=== PATIENT | female | born 1940 | race Caucasian/White ===

== ENCOUNTER 2024-03-05 16:39 | Observation (INO) ==
[2024-03-05] MEDS: ASPIRIN CHEW 324 MG PO STA (17:23)
[2024-03-05 17:28] LABS: Base Excess VBG -3.3 mEq/L; HCO3 VBG 23 mmol/L; Oxygen Saturation VBG < 60.0 %; PCO2 VBG 46 mmHg (38-50); PO2 VBG 26 mmHg; pH VBG 7.31 (7.36-7.41)
--- NOTE | 2024-03-05 17:33 | Emergency Department Note ---
History of Present Illness General Chief Complaint: Referred by Doctor Stated Complaint: SOB, OX LEVEL DOWN Time Seen by Provider: 03/05/24 16:54 History of Present Illness Provider Complaint: shortness of breath Onset (ago): day(s) (2) Consistency/Duration: + progressively worsening Relieved By: + rest Exacerbated By: + exertion Context: no recent illness Associated symptoms: no chest pain, no fever, no cough, no wheezing, no sputum production, no orthopnea, no hemoptysis, no nausea/vomiting, no syncope, no abdominal pain or no chest congestion Related Data Home oxygen amount: none Home Medications Medication Instructions Recorded Confirmed Type dorzolamide-timolol (PF) 2 %-0.5 % 1 drp OPB BID 02/27/22 03/05/24 History eye drops in a dropperette estradiol acetate 0.05 mg/24 hr 0.05 mg vaginal Q90D 02/27/22 03/05/24 History vaginal ring (Femring) clopidogrel 75 mg tablet (Plavix) 75 mg PO DAILY #90 tabs 06/20/23 03/05/24 Rx latanoprost 0.005 % eye drops 1 drp OPB PM 08/01/23 03/05/24 History (Xalatan) sertraline 25 mg tablet (Zoloft) 25 mg PO DAILY #90 tabs 12/10/23 03/05/24 Rx ibuprofen 200 mg tablet (Advil) 200 mg PO Q6H PRN Back Pain 03/05/24 03/05/24 History levothyroxine 100 mcg tablet 100 mcg PO DAILYBB 03/05/24 03/05/24 History (Synthroid) metformin 500 mg tablet,extended 500 mg PO HS 03/05/24 03/05/24 History release 24 hr tizanidine 4 mg tablet 4 mg PO Q4H PRN MUSCLE SPASMS 03/05/24 03/05/24 History Allergies Allergy/AdvReac Type Severity Reaction Status Date / Time atorvastatin AdvReac Severe Muscle Pain Verified 03/05/24 18:31 ezetimibe AdvReac Severe Muscle Pain Unverified 03/05/24 18:27 [id number] Reductase AdvReac Severe Muscle Pain Unverified 03/05/24 18:27 Inhibitor SETH Inhibitors AdvReac Intermediate Cough Unverified 03/05/24 18:27 morphine AdvReac Intermediate histamine Unverified 03/05/24 18:27 response Past Med/Surg History Problem List (Updated 03/05/24 @ 19:16 by Lei Agudelo MD) FSOTER (dyspnea on exertion) (Acute) FOSTER (dyspnea on exertion) Preoperative cardiovascular examination CAD, multiple vessel Hip pain Greater trochanteric pain syndrome Postlaminectomy syndrome of lumbosacral region Spinal stenosis of lumbar region Statin myopathy Statin intolerance Bilateral carotid artery disease Sinus node dysfunction Pacemaker Orthostatic hypotension Arteriosclerosis of coronary artery Hyperlipidemia Hypothyroidism Insomnia Degenerative joint disease (DJD) of lumbar spine Seasonal affective disorder Calcification of abdominal aorta Prediabetes Stage 3b chronic kidney disease Anemia Presence of permanent cardiac pacemaker History of COVID-19 Postural lightheadedness S/P coronary artery bypass graft x 4 History of coronary artery stent placement Abnormal electrocardiogram Antiplatelet or antithrombotic long-term use Medical History Syncope Difficult intubation COVID Surgical History S/P plastic surgery S/P appendectomy S/P cholecystectomy S/P hysterectomy History of back surgery L4/5 laminectomy History of open heart surgery 4 vessel CABG Family History Father Myocardial infarction Aunt Ovarian cancer Denies family history of Prostate cancer Breast cancer Colorectal cancer Social History Smoking Status: Never smoker Second Hand Exposure: No; Do You Dip or Chew Tobacco: No; Hx Alcohol Use: No Hx Substance Use: No Preferred Language: Haitian Communication Ability: Effective Visual Impairment: No Limitations Hearing Ability: Normal 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 marital status: Single Current Living Situation: Alone current occupational status: retired current occupation: Retired How many Children do You have: 1 Feels Safe at Home: Yes Childhood Exposure to Second-Hand Smoke: Yes Diet: regular caffeine: Yes during the past year weight has: remained stable Dental Care, Regularly: Yes Physical Activity Frequency: Daily Seatbelt Use: always Sunscreen Use: Yes Assistive Devices: Glasses and Walker Physical Exam 2 Vital Signs: Vital Signs - 24 hr 03/05/24 16:50 03/05/24 17:09 03/05/24 17:12 Temperature 37.0 C Temperature Source Temporal Artery Sc an Pulse Rate 68 69 Pulse Rate [Apical ] Respiratory Rate 20 Respiratory Effort / Characteristics Blood Pressure 159/70 H Blood Pressure Miriam n 99 Pulse Oximetry 100 100 Oxygen Delivery Me thod Room Air Room Air Sepsis Recent Feve r Within 48 Hours No Sepsis New/Unexpla ined Change in Men layne Status N/A Sepsis Action Take n by Nursing No Action Required 03/05/24 17:13 Temperature Temperature Source Pulse Rate Pulse Rate [Apical ] 69 Respiratory Rate 18 Respiratory Effort / Characteristics Spontaneous Short of Breath Blood Pressure Blood Pressure Miriam n Pulse Oximetry 98 Oxygen Delivery Me thod Room Air Sepsis Recent Feve r Within 48 Hours Sepsis New/Unexpla ined Change in Men layne Status Sepsis Action Take n by Nursing Physical Exam: Physical Exam GENERAL: oriented to person, place, and time. appears well-developed and well- nourished. HENT: Exam performed. - Head: Normocephalic and atraumatic. EYES: Conjunctivae and EOM are normal. Right eye exhibits no discharge. Left eye exhibits no discharge. No scleral icterus. NECK: Normal range of motion. Neck supple. No JVD present. CV: Normal rate, regular rhythm, normal heart sounds and intact distal pulses. There is no peripheral edema. Palpable radial pulses bue. PULM/CHEST: Effort normal and breath sounds normal. No respiratory distress. No stridor. no wheezes. no rales. ABD: The abdomen is soft. There is no tenderness. NEURO: Motor and sensation grossly intact. SKIN: Skin is warm and dry. He is not diaphoretic. PSYCH: normal mood and affect. Behavior is normal. Judgment and thought content normal. Course Course 1653: The patient was evaluated in room A9. A complete history and physical exam was performed Cardiac monitoring: An order was placed for continuous cardiac monitoring. The monitor shows a rate of 70 with sinus rhythm interpreted by me 1838: Labs within normal limits with exception of a mildly elevated BNP at 341. Chest x-ray shows cardiomegaly but no congestive failure. Troponin negative. And ambulatory pulse ox trial was conducted and the patient's oxygen saturation did go down to 91% and afterwards the patient was very tachypneic panting and saying she was having difficulty breathing. Given this. The patient should be observed overnight for cardiac workup. [facility]. Administered Medications Discontinued Medications Aspirin (Aspirin Chew 324 Mg) 324 mg PO NOW STA Stop: 03/05/24 17:13 Last Admin: 03/05/24 17:23 Dose: 324 mg Documented By: LINDSAY Medical Decision Making Laboratory Data Attestation: I reviewed the patient's lab results. 03/05/24 17:19 03/05/24 17:19 Lab Results 03/05/24 Range/Units 17:19 WBC 6.45 (4.8-10.8) K/ul RBC 3.62 L (4.20-5.40) M/uL Hgb 9.8 L (12.0-16.0) g/dl Hct 31.8 L (37.0-47.0) % MCV 87.8 (80.0-100.0) fL MCH 27.1 (25.0-34.0) pg MCHC 30.8 L (32.0-36.0) g/dL RDW Std Deviation 49.8 H (36.4-46.3) fL RDW Coeff of Jessica 15.5 H (11.5-14.5) % Plt Count 152 (130-400) K/uL MPV 10.3 (9.4-12.4) fL Immature Gran % (Auto) 0.3 % Neut % (Auto) 60.1 % Lymph % (Auto) 28.2 % [place] % (Auto) 6.7 % Eos % (Auto) 3.6 % Baso % (Auto) 1.1 % Neut # (Auto) 3.88 (1.40-6.50) K/uL Lymph # (Auto) 1.82 (1.20-3.40) K/uL [place] # (Auto) 0.43 (0.11-0.59) K/uL Eos # (Auto) 0.23 (0.00-0.50) K/uL Baso # (Auto) 0.07 (0.00-0.20) K/uL Immature Gran # (Auto) 0.02 (0.01-0.20) K/uL PT 10.0 (9.0-12.0) Seconds INR 0.9 (0.9-1.1) APTT 24 (21-31) Seconds PTT Ratio 0.9 D-Dimer 430 (0-500) ug/L FEU VBG pH 7.31 L (7.36-7.41) VBG pCO2 46 (38-50) mmHg VBG pO2 26 mmHg VBG HCO3 23 mmol/L VBG O2 Saturation < 60.0 % VBG Base Excess -3.3 mEq/L Sodium 142 (136-145) mmol/L Potassium 4.4 (3.5-5.1) mmol/L Chloride 112 H (98-107) mmol/L Carbon Dioxide 22 (21-32) mmol/L Anion Gap 8 (3-11) BUN 40 H (6-23) mg/dl Creatinine 1.21 H (0.6-1.2) mg/dl Est Cr Clr Drug Dosing 29.9 ml/min Est GFR ( Amer) 47.2 ml/min Est GFR (Non-Af Amer) 40.8 ml/min BUN/Creatinine Ratio 33.1 H (10-20) Glucose 92 (70-99(Fasting)) mg/dl Calcium 9.3 (8.6-10.3) mg/dl Troponin I High Sens 12.2 (0-14) pg/ml B-Natriuretic Peptide 341 H (0-100) pg/ml Lipase 55 (11-82) U/L SARS-CoV-2 (PCR) NEGATIVE (Negative) Influenza Type A (PCR) Negative (Neg) Influenza Type B (PCR) Negative (Neg) RSV (RT-PCR) Negative (Neg) Imaging Data Attestation: I personally reviewed and interpreted this imaging study as follows: My Impression: Chest x-ray: No significant change from the EKG done in September 2023 Radiologist's Impression: Chest X-Ray 03/05/24 17:12 SINGLE VIEW CHEST CLINICAL HISTORY: Atypical chest pain FINDINGS: An AP, portable, upright chest radiograph is compared to study dated 10/05/2023. The patient is status post midline sternotomy. A 2-lead cardiac pacemaker is unchanged in position. Epicardial leads are noted. The heart is enlarged noting atherosclerotic calcification of the thoracic aorta. The pulmonary vasculature is noncongested. Chronic interstitial thickening is similar to previous. There is bibasilar scarring/atelectasis. No airspace consolidation or large pleural effusion identified. No pneumothorax is seen. The skeletal structures are osteopenic. The bony thorax is grossly intact. Cholecystectomy clips are noted in the right upper quadrant. IMPRESSION: 1. Cardiomegaly and cardiac pacemaker without radiographic evidence of congestive failure. 2. No airspace consolidation or large pleural effusion is identified. ACT 112: Negative or not required by law. Electronically signed by: Efrem Crocker M.D. 03/05/2024 6:22 PM ECG Data Attestation: I personally reviewed and interpreted this ECG as follows: Interpretation: Sinus rhythm with a rate of 67. [place] QRS and QTc intervals within normal limits. No ST elevation or ST depression. Left ventricular hypertrophy present. T wave inversion in lead aVL only. No significant change from the EKG done in February 2022. [facility] Narrative 1654: The patient was evaluated in room A9. A complete history and physical exam was performed Cardiac monitoring: An order was placed for continuous cardiac monitoring. The monitor shows a rate of 70 with sinus rhythm interpreted by me 1838: Labs within normal limits with exception of a mildly elevated BNP at 341. Chest x-ray shows cardiomegaly but no congestive failure. Troponin negative. And ambulatory pulse ox trial was conducted and the patient's oxygen saturation did go down to 91% and afterwards the patient was very tachypneic panting and saying she was having difficulty breathing. Given this. The patient should be observed overnight for cardiac workup. Will discuss with [facility] hospitalist to admit the patient. Impression & Plan FOSTER (dyspnea on exertion) Discharge Plan Visit Data Chief Complaint: Referred by Doctor Stated Complaint: SOB, OX LEVEL DOWN ED Provider: Lei Agudelo Discharge Problem: FOSTER (dyspnea on exertion) Patient Disposition: Being Evaluated by Hospitalist Forms Stand Alone Forms: [facility] Prescriptions Prescriptions: No Action clopidogrel [Plavix] 75 mg tablet 75 mg PO DAILY Qty: 90 3RF sertraline [Zoloft] 25 mg tablet 25 mg PO DAILY Qty: 90 1RF Femring 0.05 mg/24 hr Ring 0.05 mg VAGINAL Q90D dorzolamide-timolol (PF) 2-0.5 % Dropperette 1 drp OPB BID latanoprost [Xalatan] 0.005 % drops 1 drp OPB PM tizanidine 4 mg tablet 4 mg PO Q4H PRN (Reason: MUSCLE SPASMS) ibuprofen [Advil] 200 mg Tablet 200 mg PO Q6H PRN (Reason: Back Pain) levothyroxine [Synthroid] 100 mcg tablet 100 mcg PO DAILYBB metformin 500 mg tablet extended release 24 hr 500 mg PO HS Rx Instructions: TAKE 1 TABLET BY MOUTH EVERY DAY Referrals Referrals: Wilber Pope III, CRNP [Primary Care Provider] -
[2024-03-05 17:36] LABS: Basophils # (auto) 0.07 K/uL (0.00-0.20); Basophils % (auto) 1.1 %; Eosinophils # (auto) 0.23 K/uL (0.00-0.50); Eosinophils % (auto) 3.6 %; Hematocrit (blood only) 31.8 % (37.0-47.0); Hemoglobin 9.8 g/dl (12.0-16.0); Immature Granulocytes # (auto) 0.02 K/uL (0.01-0.20); Immature Granulocytes % (auto) 0.3 %; Lymphocytes # (auto) 1.82 K/uL (1.20-3.40); Lymphocytes % (auto) 28.2 %; Mean Corpuscular Hemoglobin 27.1 pg (25.0-34.0); Mean Corpuscular Hgb Conc 30.8 g/dL (32.0-36.0); Mean Corpuscular Volume 87.8 fL (80.0-100.0); Mean Platelet Volume 10.3 fL (9.4-12.4); Monocytes # (auto) 0.43 K/uL (0.11-0.59); Monocytes % (auto) 6.7 %; Neutrophils # (auto) 3.88 K/uL (1.40-6.50); Neutrophils % (auto) 60.1 %; Platelet Count 152 K/uL (130-400); RDW Coefficient of Variation 15.5 % (11.5-14.5); RDW Standard Deviation 49.8 fL (36.4-46.3); Red Blood Count 3.62 M/uL (4.20-5.40); White Blood Count 6.45 K/ul (4.8-10.8)
[2024-03-05 17:53] LABS: BUN Creatinine Ratio 33.1 (10-20); Calcium 9.3 mg/dl (8.6-10.3); Creatinine Clr Calc Pharmacy 29.9 ml/min; Est GFR (African American) 47.2 ml/min; Est GFR (Non-African American) 40.8 ml/min; Potassium 4.4 mmol/L (3.5-5.1)
[2024-03-05 17:59] LABS: Troponin I High Sensitivity 12.2 pg/ml (0-14)
[2024-03-05 18:02] LABS: D Dimer 430 ug/L FEU (0-500); INR 0.9 (0.9-1.1); Partial Thromboplastin Ratio 0.9; Partial Thromboplastin Time 24 Seconds (21-31)
[2024-03-05 18:09] LABS: Influenza A virus by PCR Negative (Neg); Influenza B virus by PCR Negative (Neg); RSV by PCR Negative (Neg); SARS CoV2 RNA(COVID-19) Ceph NEGATIVE (Negative)
--- NOTE | 2024-03-05 18:23 | XRay Report ---
SINGLE VIEW CHEST CLINICAL HISTORY: Atypical chest pain FINDINGS: An AP, portable, upright chest radiograph is compared to study dated 10/05/2023. The patien t is status post midline sternotomy. A 2-lead cardiac pacemaker is unchanged in position. Epicardial leads are noted. The heart is enlarged noting atherosclerotic calcification of the thoracic aorta. Th e pulmonary vasculature is noncongested. Chronic interstitial thickening is similar to previous. Ther e is bibasilar scarring/atelectasis. No airspace consolidation or large pleural effusion identified. No pneumothorax is seen. The skeletal structures are osteopenic. The bony thorax is grossly intact. C holecystectomy clips are noted in the right upper quadrant. IMPRESSION: 1. Cardiomegaly and cardiac pacemaker without radiographic evidence of congestive failure. 2. No airspace consolidation or large pleural effusion is identified. ACT 112: Negative or not required by law. Electronically signed by: Efrem Crocker M.D. 03/05/2024 6:22 PM
--- NOTE | 2024-03-05 18:57 | History & Physical Report ---
Date of Service March 05, 2024 Assessment & Plan (1) FOSTER (dyspnea on exertion): Plan: -Admit to med/tele -Currently stable and non-toxic appearing -Presented to the ED after experiencing significant FOSTER and hypoxia into the 80's with exertion at PT today -Denies symptoms at rest -Symptoms are similar to her previous need for CABG and KATY placement -High sen trop WNL, no acute ST segment or T-wave changes on ECG -BNP mildly elevated at 341 but patient is without volume overload on exam or CXR -D-dimer is negative, will obtain BL venous dopplers to access for possible DVT >If positive will obtain stat CTA of the chest with PE protocol -S/P 324 mg Aspirin -Continue to monitor on tele -Will consult cardiology as she follows with [facility] [place] [facility] [place] -Will obtain 2 hour repeat high sen trop and trend overnight -Continue to monitor on tele -SQ Lovenox for DVT PPX -HH/DMII diet with 2 gm sodium restriction -AM CBC, CMP, mag, PT/INR (2) CAD, multiple vessel: Plan: -Continue plavix and statin -Follow high sen trop and Cardiology consult (3) Postlaminectomy syndrome of lumbosacral region: Plan: -Continue home pain regimen (4) Pacemaker: Plan: -Will interrogate pacemaker on admission (5) Prediabetes: Plan: -Hold metformin -Monitor BSG ACHS goal is 110-160 -Start CF 50 and CR of 15 for now -Adjust regimen as needed (6) Hypothyroidism: Plan: -Continue levothyroxine Plan The patient was discussed with Dr. Whitfield at the time of the admission History of Present Illness Chief Complaint: FOSTER, hypoxia with exertion Primary Care Provider: Wilber Pope, III, DADO OPERATOR Luly is a 83 year old female with a PMH significant for CAD S/P CABG in 2009 (In [place]), S/P Cardiac cath with KATY placement in 2010 and 2014 (unknown locations per last Cardiology clinic note), SSS S/P cardiac pacemaker placement in 2012, prediabetes, anemia, and Status post L3-L4 Laminectomy and L3-L5 fusion on November 13, 2023 in [place] who presented to the [facility] ED on 03/05/24 after experiencing significant FOSTER and reported hypoxia into the 80's while at PT today. She remained stable in the ED. Labs were significant for a VBG pH of 7.31 with pCO2 and pO2 WNL, high sen trop of 12 with BNP of 341, and Covid 19/RSV/Influenza negative. Chest xray was read as negative for acute findings. ECG showed NSR without acute ST segment or T-wave changes. The patient underwent an ambulatory trial in the ED, she still had significant FOSTER and her SpO2 fell to the low 90's on RA. The patient was given 324 mg Aspirin prior to admission. At the time of the exam the patient was sitting in bed in no acute distress. She states that she has been going to PT since her back surgery in October, no complications. Confirms that she was experiencing significant FOSTER while at PT earlier today. Confirms that she has always experienced FOSTER with her previous CABG and heart caths. Denies symptoms at rest. No recent fever, chills, chest pain, cough, hemoptysis, abd pain, nausea, vomiting, diarrhea, dysuria, hematuria, melena, and recent trauma. Has had some LE swelling recently which she attributes to increased sodium intake. She is a full code and her brother is her POA. Please refer to Dr. Whitfield's attestation for any changes to the treatment plan Allergies Allergy/AdvReac Type Severity Reaction Status Date / Time atorvastatin AdvReac Severe Muscle Pain Verified 03/05/24 18:31 ezetimibe AdvReac Severe Muscle Pain Unverified 03/05/24 18:27 [id number] Reductase AdvReac Severe Muscle Pain Unverified 03/05/24 18:27 Inhibitor SETH Inhibitors AdvReac Intermediate Cough Unverified 03/05/24 18:27 morphine AdvReac Intermediate histamine Unverified 03/05/24 18:27 response Home Medications Medication Instructions Recorded Confirmed Type dorzolamide-timolol (PF) 2 %-0.5 % 1 drp OPB BID 02/27/22 03/05/24 History eye drops in a dropperette estradiol acetate 0.05 mg/24 hr 0.05 mg vaginal Q90D 02/27/22 03/05/24 History vaginal ring (Femring) clopidogrel 75 mg tablet (Plavix) 75 mg PO DAILY #90 tabs 06/20/23 03/05/24 Rx latanoprost 0.005 % eye drops 1 drp OPB PM 08/01/23 03/05/24 History (Xalatan) sertraline 25 mg tablet (Zoloft) 25 mg PO DAILY #90 tabs 12/10/23 03/05/24 Rx ibuprofen 200 mg tablet (Advil) 200 mg PO Q6H PRN Back Pain 03/05/24 03/05/24 History levothyroxine 100 mcg tablet 100 mcg PO DAILYBB 03/05/24 03/05/24 History (Synthroid) metformin 500 mg tablet,extended 500 mg PO HS 03/05/24 03/05/24 History release 24 hr tizanidine 4 mg tablet 4 mg PO Q4H PRN MUSCLE SPASMS 03/05/24 03/05/24 History Past Med/Surg History Problem List (Updated 03/05/24 @ 19:16 by Lei Agudelo MD) FOSTER (dyspnea on exertion) (Acute) FOSTER (dyspnea on exertion) Preoperative cardiovascular examination CAD, multiple vessel Hip pain Greater trochanteric pain syndrome Postlaminectomy syndrome of lumbosacral region Spinal stenosis of lumbar region Statin myopathy Statin intolerance Bilateral carotid artery disease Sinus node dysfunction Pacemaker Orthostatic hypotension Arteriosclerosis of coronary artery Hyperlipidemia Hypothyroidism Insomnia Degenerative joint disease (DJD) of lumbar spine Seasonal affective disorder Calcification of abdominal aorta Prediabetes Stage 3b chronic kidney disease Anemia Presence of permanent cardiac pacemaker History of COVID-19 Postural lightheadedness S/P coronary artery bypass graft x 4 History of coronary artery stent placement Abnormal electrocardiogram Antiplatelet or antithrombotic long-term use Medical History Syncope Difficult intubation COVID Surgical History S/P plastic surgery S/P appendectomy S/P cholecystectomy S/P hysterectomy History of back surgery L4/5 laminectomy History of open heart surgery 4 vessel CABG Family History Father Myocardial infarction Aunt Ovarian cancer Denies family history of Prostate cancer Breast cancer Colorectal cancer Social History Smoking Status: Never smoker Second Hand Exposure: No; Do You Dip or Chew Tobacco: No; Hx Alcohol Use: No Hx Substance Use: No Preferred Language: Bulgarian Communication Ability: Effective Visual Impairment: No Limitations Hearing Ability: Normal Dredge Pipeman Required: No Beliefs That Will Affect Care: None marital status: Single Current Living Situation: Alone Current Living Situation Comment: assisted living current occupational status: retired current occupation: Retired How many Children do You have: 1 Feels Safe at Home: Yes Safety Concerns: Feels Safe At This Time Childhood Exposure to Second-Hand Smoke: Yes Diet: regular caffeine: Yes during the past year weight has: remained stable Dental Care, Regularly: Yes Physical Activity Frequency: Daily Seatbelt Use: always Sunscreen Use: Yes Assistive Devices: Cane and Denture - Upper Assistive Devices Comment: partial upper plate Physical Exam 2 Physical Exam: Physical Exam: General: In no acute distress, stated age, well-nourished, good hygiene HEENT: Normocephalic, atraumatic, no scleral icterus, pupils around round, symmetrical, and reactive to light, moist mucus membranes, trachea midline, no thyromegaly Chest/Pulm: No respiratory distress, symmetrical chest expansion, clear breath sounds throughout Cardiac: RRR, 3/6 systolic murmur noted Abdomen: Negative for ascites and bruising, normoactive bowel sounds, soft, non-tender to palpation throughout Musculoskeletal: Symmetrical and without signs of acute trauma, upper and lower extremities with full ROM, no atrophy, spasticity, or flaccidity Extremities: Radial, dorsalis pedis, and posterior tibial pulses are intact and symmetrical, no edema noted in the BL LE's Skin: Warm, dry, no rashes , lesions, or scars noted Neuro: Alert and oriented to person, place, month, year, and president, no focal defects, no tremors noted Psych: No acute distress, calm and cooperative during the exam Results & Data Results & Data Vital Signs (Past 12 Hours) Vital Signs Temp Pulse Pulse Resp BP Pulse Ox O2 Del Method 03/05/24 17:13 69 18 98 Room Air 03/05/24 17:12 100 Room Air 03/05/24 17:09 69 03/05/24 16:50 37.0 C 68 20 159/70 H 100 Room Air Laboratory Results Abnormal lab results 03/05/24 Range/Units 17:19 RBC 3.62 L (4.20-5.40) M/uL Hgb 9.8 L (12.0-16.0) g/dl Hct 31.8 L (37.0-47.0) % MCHC 30.8 L (32.0-36.0) g/dL RDW Std Deviation 49.8 H (36.4-46.3) fL RDW Coeff of Jessica 15.5 H (11.5-14.5) % VBG pH 7.31 L (7.36-7.41) Chloride 112 H (98-107) mmol/L BUN 40 H (6-23) mg/dl Creatinine 1.21 H (0.6-1.2) mg/dl BUN/Creatinine Ratio 33.1 H (10-20) B-Natriuretic Peptide 341 H (0-100) pg/ml Diagnostic Findings Chest X-Ray 03/05/24 17:12 SINGLE VIEW CHEST CLINICAL HISTORY: Atypical chest pain FINDINGS: An AP, portable, upright chest radiograph is compared to study dated 10/05/2023. The patient is status post midline sternotomy. A 2-lead cardiac pacemaker is unchanged in position. Epicardial leads are noted. The heart is enlarged noting atherosclerotic calcification of the thoracic aorta. The pulmonary vasculature is noncongested. Chronic interstitial thickening is similar to previous. There is bibasilar scarring/atelectasis. No airspace consolidation or large pleural effusion identified. No pneumothorax is seen. The skeletal structures are osteopenic. The bony thorax is grossly intact. Cholecystectomy clips are noted in the right upper quadrant. IMPRESSION: 1. Cardiomegaly and cardiac pacemaker without radiographic evidence of congestive failure. 2. No airspace consolidation or large pleural effusion is identified. ACT 112: Negative or not required by law. Electronically signed by: Efrem Crocker M.D. 03/05/2024 6:22 PM ECG Additional Comments: Normal sinus rhythm Left ventricular hypertrophy with repolarization abnormality ( R in aVL , Condon product ) Cannot rule out Septal infarct (cited on or before 05-OCT-2023) Abnormal ECG When compared with ECG of 05-OCT-2023 09:40, (unconfirmed) Sinus rhythm has replaced Electronic atrial pacemaker Questionable change in initial forces of Septal leads Code Status & VTE Plan Code Status Full code VTE Prophylaxis Plan VTE Prophylaxis will be ordered: Yes Supervising Physician Co-Signing Physician Notes I personally saw and examined the patient. I verified all ward points and agree with Mp Rico PA-C with the following exceptions and/or additions: 83 year old female presents to the ER with shortness of breath on exertion. Feels this is similar symptoms of angina equivalent prior to requiring CABG and prior stents. Dobutamine stress echo negative for myocardial ischemia in October. No current chest pain or shortness of breath at rest. O/E HS RRR, systolic murmur, no respiratory distress, Chest CTAB, Abdo SNT, no pedal edema A/P Shortness of breath on exertion - CXR unremarkable, serial troponins overnight, consult cardiology for consideration of cardiac cath, NPO after midnight PG Care Time/CCT Total # of Minutes Spent Total Time Spent with Patient: Total time spent is greater than 50% in coordination of care (as documented) at patient's floor/unit and/or counseling patient: C[place] [address] INT INP/OBS CARE 2/MIN Patient Type Established Medical Decision Making Moderate Complexity Diagnoses FOSTER (dyspnea on exertion) R06.09 CAD, multiple vessel I25.10 Postlaminectomy syndrome of lumbosacral region M96.1 Pacemaker Z95.0 Prediabetes R73.03 Hypothyroidism, unspecified type E03.9 Hypothyroidism type: unspecified (6) Hypothyroidism Hypothyroidism type: unspecified Qualified Code(s): E03.9 - Hypothyroidism, unspecified
[2024-03-05] MEDS ORDERED: GLUCOSE 10 TAB/TUBE PO PRN (19:33)
[2024-03-05] MEDS ORDERED: GLUCOSE 40% GEL 15 GM TUBE PO PRN (19:33)
[2024-03-05] MEDS ORDERED: DEXTROSE 50% 50 ML SYRINGE IV PRN (19:33)
[2024-03-05] MEDS ORDERED: CARBOHYDRATES FOR HYPOGLYCEMIA PO PRN (19:33)
[2024-03-05] MEDS ORDERED: GLUCAGON FOR INJ 1 MG VIAL SQ PRN (19:33)
--- NOTE | 2024-03-05 21:05 | Ultrasound Report ---
ULTRASOUND BILATERAL LOWER EXTREMITY VENOUS CLINICAL HISTORY: Dyspnea. Lower extremity edema. COMPARISON STUDY: No priors. TECHNIQUE: Real-time, grayscale, and color Doppler sonography of the deep veins of the right and left lower extremity was performed from the inguinal crease to the calf. Compression and augmentation wer e utilized. FINDINGS: There is no sonographic evidence of deep venous thrombosis identified in the right or left lower extremity. The common femoral, superficial femoral, and popliteal veins are patent and normally compressible bilaterally. The greater saphenous vein and the profunda femoris vein at the junction w ith the common femoral vein are clear in both legs. The visualized calf veins are patent bilaterally. IMPRESSION: There is no sonographic evidence of deep venous thrombosis identified in the right or lef t lower extremity. ACT 112: Negative or not required by law. Electronically signed by: Efrem Crocker M.D. 03/05/2024 9:03 PM
[2024-03-05] MEDS: INSULIN ASPART PER UNIT CHARGE SC SCH (21:57)
[2024-03-05] MEDS: ENOXAPARIN INJ 30 MG/0.3 ML SYR SQ SCH (22:20)
[2024-03-05] MEDS: LATANOPROST 0.005% OP SOLN 2.5 ML BTL OPB SCH (22:20)
[2024-03-06] MEDS: ACETAMINOPHEN 325 MG TAB PO PRN (00:35)
[2024-03-06] MEDS: tiZANidine HCL 4 MG TABLET PO PRN (00:35)
[2024-03-06] MEDS: LEVOTHYROXINE SODIUM 100 MCG TABLET PO SCH (06:36)
[2024-03-06 07:19] LABS: Basophils # (auto) 0.07 K/uL (0.00-0.20); Basophils % (auto) 1.4 %; Eosinophils # (auto) 0.24 K/uL (0.00-0.50); Eosinophils % (auto) 4.7 %; Hematocrit (blood only) 29.6 % (37.0-47.0); Hemoglobin 9.1 g/dl (12.0-16.0); Immature Granulocytes # (auto) 0.01 K/uL (0.01-0.20); Immature Granulocytes % (auto) 0.2 %; Lymphocytes # (auto) 1.95 K/uL (1.20-3.40); Lymphocytes % (auto) 38.5 %; Mean Corpuscular Hemoglobin 26.8 pg (25.0-34.0); Mean Corpuscular Hgb Conc 30.7 g/dL (32.0-36.0); Mean Corpuscular Volume 87.1 fL (80.0-100.0); Mean Platelet Volume 10.9 fL (9.4-12.4); Monocytes # (auto) 0.49 K/uL (0.11-0.59); Monocytes % (auto) 9.7 %; Neutrophils # (auto) 2.31 K/uL (1.40-6.50); Neutrophils % (auto) 45.5 %; Platelet Count 132 K/uL (130-400); RDW Coefficient of Variation 15.4 % (11.5-14.5); RDW Standard Deviation 49.1 fL (36.4-46.3); White Blood Count 5.07 K/ul (4.8-10.8)
[2024-03-06 07:34] LABS: BUN Creatinine Ratio 31.1 (10-20); Creatinine Clr Calc Pharmacy 36.7 ml/min; Est GFR (African American) 57.4 ml/min; Est GFR (Non-African American) 49.5 ml/min; Magnesium 1.8 mg/dl (1.7-2.4)
[2024-03-06 07:40] LABS: Troponin I High Sensitivity 14.9 pg/ml (0-14)
[2024-03-06 07:55] LABS: INR 0.9 (0.9-1.1); Prothrombin Time 10.2 Seconds (9.0-12.0)
--- NOTE | 2024-03-06 08:01 | Electrocardiogram Report ---
Test Reason : Blood Pressure : / mmHG Vent. Rate : 067 BPM Atrial Rate : 067 BPM P-R Int : 168 ms QRS Dur : 084 ms QT Int : 390 ms P-R-T Axes : 049 001 101 degrees QTc Int : 412 ms Normal sinus rhythm Left ventricular hypertrophy with repolarization abnormality Abnormal ECG When compared with ECG of 05-OCT-2023 09:40, (unconfirmed) Sinus rhythm has replaced Electronic atrial pacemaker Confirmed by Derek Rucker ([id number]) on 03/06/2024 8:00:52 AM Referred By: Wilber Pope Confirmed By:Aydin Rucker
[2024-03-06] MEDS: SERTRALINE HCL 50 MG TABLET PO SCH (09:19)
[2024-03-06] MEDS: CLOPIDOGREL BISULFATE 75 MG TAB PO SCH (09:20)
--- NOTE | 2024-03-06 13:49 | Hospitalist Progress Note ---
Date of Service March 06, 2024 Assessment & Plan (1) FOSTER (dyspnea on exertion): Plan: -Admit to med/tele -Currently stable and non-toxic appearing -Presented to the ED after experiencing significant FOSTER and hypoxia into the 80's with exertion at PT today -Denies symptoms at rest -Symptoms are similar to her previous need for CABG and KATY placement -High sen trop WNL, no acute ST segment or T-wave changes on ECG -BNP mildly elevated at 341 but patient is without volume overload on exam or CXR -D-dimer is negative, will obtain BL venous dopplers to access for possible DVT >If positive will obtain stat CTA of the chest with PE protocol -S/P 324 mg Aspirin -Continue to monitor on tele -Will consult cardiology as she follows with [facility] [place] -Will obtain 2 hour repeat high sen trop and trend overnight -Continue to monitor on tele -SQ Lovenox for DVT PPX -HH/DMII diet with 2 gm sodium restriction -AM CBC, CMP, mag, PT/INR (2) CAD, multiple vessel: Plan: -Continue plavix and statin -Follow high sen trop and Cardiology consult (3) Postlaminectomy syndrome of lumbosacral region: Plan: -Continue home pain regimen (4) Pacemaker: Plan: -Will interrogate pacemaker on admission (5) Prediabetes: Plan: -Hold metformin -Monitor BSG ACHS goal is 110-160 -Start CF 50 and CR of 15 for now -Adjust regimen as needed (6) Hypothyroidism: Plan: -Continue levothyroxine Plan The patient was discussed with Dr. Whitfield at the time of the admission Admission and Anticipated Discharge Date Admission Date: March 05, 2024 Subjective Patient seen and evaluated at bedside. She reports her dyspnea on exertion is improved compared to yesterday, however still not returned to her baseline. She does report some tachypnea, however she was not tachypneic during my assessment. She states that this dyspnea on exertion with hypoxia is similar to when she previously required CABG and KATY. Patient reports that her main complaint at this time is being hungry. She states if she does not have a diet order resumed and seen by cardiology shortly that she will sign out AMA. I reached out to Dr. Rucker to confirm she can have a diet, and 1 was then ordered. I explained to the patient that I feel as though it is important for her to remain in the hospital for further workup of this FOSTER with hypoxia given her extensive cardiac history and that she is still symptomatic, even though there has been some improvement compared to yesterday. Physical Exam Physical Exam: General: No acute distress, nondiaphoretic, well-developed, well-nourished. Skin: The skin was without rashes, erythema, edema, or bruising. Cardiac: Regular rate and rhythm. 3/6 systolic murmur noted. Pulm: Clear to auscultation bilaterally without wheezes, rales or rhonchi. No retractions or accessory muscle use. Abdominal: Positive bowel sounds x 4. Soft, nontender, without masses or organomegaly. No guarding or rebound tenderness. Neuro: A&O x3. No focal neurological deficits. Results & Data Results & Data Vital Signs (Past 12 Hours) Vital Signs Temp Pulse Resp BP BP Pulse Ox O2 Del Method 03/06/24 11:38 36.6 C 67 16 160/83 H 97 Room Air 03/06/24 07:37 36.6 C 67 18 152/55 H 97 Room Air 03/06/24 04:11 36.6 C 70 16 152/73 H 99 Room Air Laboratory Results Reviewed CBC Reviewed coag Reviewed CMP PG Care Time/CCT Total # of Minutes Spent Total Time Spent with Patient: Total time spent is greater than 50% in coordination of care (as documented) at patient's floor/unit and/or counseling patient: Coding Diagnoses FOSTER (dyspnea on exertion) R06.09 CAD, multiple vessel I25.10 Postlaminectomy syndrome of lumbosacral region M96.1 Pacemaker Z95.0 Prediabetes R73.03 Hypothyroidism, unspecified type E03.9 Hypothyroidism type: unspecified (6) Hypothyroidism Hypothyroidism type: unspecified Qualified Code(s): E03.9 - Hypothyroidism, unspecified
[2024-03-06] MEDS: FUROSEMIDE INJ 20 MG/2 ML VIAL IV ONE (17:15)
--- NOTE | 2024-03-06 17:23 | Cardiology Consultation ---
Date of Consultation March 06, 2024 Assessment & Plan (1) FOSTER (dyspnea on exertion): (2) CAD, multiple vessel: (3) Sinus node dysfunction: Plan 1. Dyspnea on exertion: She also has some dyspnea at rest. Shortness of breath with activity could be related to her period of relative inactivity and overall deconditioning. She also has a pacemaker for sinus node dysfunction and poor rate response could also cause similar symptoms. She is approaching the replacement. Of her device. At the time of admission there was concern that this represented angina. While her symptoms leading up to revascularization were generally dyspnea on exertion, she seems to have more symptoms at rest currently. Additionally, I would not expect angina to produce hypoxia. She had a recent dobutamine echocardiogram leading up to her back surgery and this did not demonstrate inducible ischemia. Despite her symptoms there is no elevation in biomarkers. I think her hypoxia and dyspnea could be more related to his pulmonary vascular congestion. While this was not seen on her chest x-ray, she did report recent lower extremity edema and has an elevated BNP. I think a empiric trial of Lasix would be reasonable. We could follow her BNP and symptoms in the outpatient setting as well. 2. Coronary artery disease: Reportedly her symptoms in the past have been dyspnea on exertion. She has had multiple interventions. I think her current symptoms are less likely ischemic in nature. Will continue aggressive secondary prevention. 3. Dual-chamber Helms pacemaker: She is known to have limited longevity of the device. Tentatively planning for a generator replacement later this year. Reportedly an interrogation was performed during this hospitalization but the report is not available. Currently in a paced atrial rhythm. She seems to have adequate rate response on telemetry. History of Present Illness Reason for Consultation: Dyspnea on exertion, hypoxia Requesting Physician: Karina Attending Physician: Paty Jensen MD History of Present Illness The patient is an 83-year-old woman with an extensive history of coronary artery disease having previously undergone surgical revascularization in 2009. Subsequent to her bypass surgery she reports undergoing percutaneous intervention on 3 occasions the most recent which was within the last year. She also suffers from significant back problems. She had chronic back pain and recently underwent back surgery. She was relatively sedentary by direction for several months but this week began physical therapy. She was noted by her physical therapist to have some dyspnea on exertion and a pulse oximetry reading was low. She was subsequently directed to the emergency room for an evaluation. The patient states that in general she has an element of dyspnea since becoming more sedentary, but yesterday this was more pronounced. She feels that at rest she is somewhat tachypneic. She has a general sense of being short of breath which is worse with activity. She denies symptoms of chest discomfort or chest pressure. She does have a long history of orthostatic hypotension, but is managing this with moving more slowly from a seated to standing position. No sense of palpitation recently. Perhaps some mild lower extremity edema which appears to be better today. No increasing abdominal girth. Since admission the patient reports feeling better. She was able to ambulate around the wall today with improvement in her shortness of breath. Again, she does note a sense of tachypnea at rest. Again improved. Allergies Allergy/AdvReac Type Severity Reaction Status Date / Time atorvastatin AdvReac Severe Muscle Pain Verified 03/05/24 18:31 ezetimibe AdvReac Severe Muscle Pain Unverified 03/05/24 18:27 Laexrgf-DPV-BgY Reductase AdvReac Severe Muscle Pain Unverified 03/05/24 18:27 Inhibitor SETH Inhibitors AdvReac Intermediate Cough Unverified 03/05/24 18:27 morphine AdvReac Intermediate histamine Unverified 03/05/24 18:27 response Home Medications Medication Instructions Recorded Confirmed Type dorzolamide-timolol (PF) 2 %-0.5 % 1 drp OPB BID 02/27/22 03/05/24 History eye drops in a dropperette estradiol acetate 0.05 mg/24 hr 0.05 mg vaginal Q90D 02/27/22 03/05/24 History vaginal ring (Femring) clopidogrel 75 mg tablet (Plavix) 75 mg PO DAILY #90 tabs 06/20/23 03/05/24 Rx latanoprost 0.005 % eye drops 1 drp OPB PM 08/01/23 03/05/24 History (Xalatan) sertraline 25 mg tablet (Zoloft) 25 mg PO DAILY #90 tabs 12/10/23 03/05/24 Rx ibuprofen 200 mg tablet (Advil) 200 mg PO Q6H PRN Back Pain 03/05/24 03/05/24 History levothyroxine 100 mcg tablet 100 mcg PO DAILYBB 03/05/24 03/05/24 History (Synthroid) metformin 500 mg tablet,extended 500 mg PO HS 03/05/24 03/05/24 History release 24 hr tizanidine 4 mg tablet 4 mg PO Q4H PRN MUSCLE SPASMS 03/05/24 03/05/24 History Patient History Medical History Syncope Difficult intubation COVID Surgical History S/P plastic surgery S/P appendectomy S/P cholecystectomy S/P hysterectomy History of back surgery L4/5 laminectomy History of open heart surgery 4 vessel CABG Family History Father Myocardial infarction Aunt Ovarian cancer Denies family history of Prostate cancer Breast cancer Colorectal cancer Social History Smoking Status: Never smoker Second Hand Exposure: No; Do You Dip or Chew Tobacco: No; Hx Alcohol Use: No Hx Substance Use: No Preferred Language: Telugu Communication Ability: Effective Visual Impairment: No Limitations Hearing Ability: Normal Yoker Machine Operator Required: No Beliefs That Will Affect Care: None marital status: Single Current Living Situation: Alone Current Living Situation Comment: assisted living current occupational status: retired current occupation: Retired How many Children do You have: 1 Feels Safe at Home: Yes Childhood Exposure to Second-Hand Smoke: Yes Diet: regular caffeine: Yes during the past year weight has: remained stable Dental Care, Regularly: Yes Physical Activity Frequency: Daily Seatbelt Use: always Sunscreen Use: Yes Assistive Devices: Cane Review of Systems Review of Systems: Per HPI Physical Exam Physical Exam: She is alert and oriented x3. Mood affect appear normal. She answered all questions appropriately. HEENT: Sclerae are anicteric. Pupils are equal and reactive to light and accommodation. Extraocular movements were intact. Neuro: Cranial nerves intact Neck: Examination of the submandibular region did not reveal any significant lymphadenopathy. Carotids are palpable bilaterally and free of bruits on auscultation. There was no evidence of jugular venous distention. The thyroid was not enlarged. Lungs: Lungs are clear to auscultation bilaterally. There are no rales wheezes or rhonchi. She has normal respiratory effort without use of accessory muscles. There is normal pulmonary excursion. Cardiac: The rhythm was regular. S1 and S2 were normal. There are no murmurs on examination. The PMI was not markedly displaced on palpation. Extremities: Patient has bilateral radial pulses that are equal in intensity. There is no evidence cyanosis or clubbing. There was no evidence of significant peripheral edema bilaterally. Skin: There are no rashes noted on examination today. Results & Data Vital Signs (Past 12 Hours) Vital Signs Temp Pulse Pulse Resp BP BP Pulse Ox 03/06/24 16:04 66 03/06/24 11:38 36.6 C 67 16 160/83 H 97 03/06/24 07:37 36.6 C 67 18 152/55 H 97 O2 Del Method 03/06/24 16:04 03/06/24 11:38 Room Air 03/06/24 07:37 Room Air Laboratory Results Abnormal Lab Results 03/05/24 03/05/24 03/06/24 21:17 21:30 06:58 WBC 5.07 RBC 3.40 L Hgb 9.1 L Hct 29.6 L MCV 87.1 MCH 26.8 MCHC 30.7 L RDW Std Deviation 49.1 H RDW Coeff of Jessica 15.4 H Plt Count 132 MPV 10.9 Immature Gran % (Auto) 0.2 Neut % (Auto) 45.5 Lymph % (Auto) 38.5 Walton % (Auto) 9.7 Eos % (Auto) 4.7 Baso % (Auto) 1.4 Neut # (Auto) 2.31 Lymph # (Auto) 1.95 Walton # (Auto) 0.49 Eos # (Auto) 0.24 Baso # (Auto) 0.07 Immature Gran # (Auto) 0.01 PT 10.2 INR 0.9 Sodium 139 Potassium 4.0 Chloride 110 H Carbon Dioxide 25 Anion Gap 4 BUN 32 H Creatinine 1.03 Est Cr Clr Drug Dosing 36.7 Est GFR ( Amer) 57.4 Est GFR (Non-Af Amer) 49.5 BUN/Creatinine Ratio 31.1 H Glucose 87 POC Glucose 109 H Calcium 9.0 Magnesium 1.8 Troponin I High Sens 12.5 14.9 H 03/06/24 03/06/24 08:19 12:01 WBC RBC Hgb Hct MCV MCH MCHC RDW Std Deviation RDW Coeff of Jessica Plt Count MPV Immature Gran % (Auto) Neut % (Auto) Lymph % (Auto) Walton % (Auto) Eos % (Auto) Baso % (Auto) Neut # (Auto) Lymph # (Auto) Walton # (Auto) Eos # (Auto) Baso # (Auto) Immature Gran # (Auto) PT INR Sodium Potassium Chloride Carbon Dioxide Anion Gap BUN Creatinine Est Cr Clr Drug Dosing Est GFR ( Amer) Est GFR (Non-Af Amer) BUN/Creatinine Ratio Glucose POC Glucose 99 86 Calcium Magnesium Troponin I High Sens Diagnostic Findings Echocardiogram dated 03/06/2024: Normal LV systolic function. Chest x-ray obtained at the time of admission not given acute cardiopulmonary process PG Care Time/CCT Total # of Minutes Spent Total Time Spent with Patient: Total time spent is greater than 50% in coordination of care (as documented) at patient's floor/unit and/or counseling patient: Coding Level of Care Code 64497 INT INP/OBS CARE 3/75MIN Diagnoses FOSTER (dyspnea on exertion) R06.09 CAD, multiple vessel I25.10 Sinus node dysfunction I49.5
--- NOTE | 2024-03-06 18:19 | Discharge Summary ---
Discharge Summary Date of Service March 06, 2024 Notes For Next Care Provider Medication Changes From Visit No changes Admission HPI Per Admitting Provider Luly is a 83 year old female with a PMH significant for CAD S/P CABG in 2009 (In [place]), S/P Cardiac cath with KATY placement in 2010 and 2014 (unknown locations per last Cardiology clinic note), SSS S/P cardiac pacemaker placement in 2012, prediabetes, anemia, and Status post L3-L4 Laminectomy and L3-L5 fusion on November 13, 2023 in [place] who presented to the [facility] ED on 03/05/24 after experiencing significant FOSTER and reported hypoxia into the 80's while at PT today. She remained stable in the ED. Labs were significant for a VBG pH of 7.31 with pCO2 and pO2 WNL, high sen trop of 12 with BNP of 341, and Covid 19 /RSV/Influenza negative. Chest xray was read as negative for acute findings. ECG showed NSR without acute ST segment or T-wave changes. The patient underwent an ambulatory trial in the ED, she still had significant FOSTER and her SpO2 fell to the low 90's on RA. The patient was given 324 mg Aspirin prior to admission. At the time of the exam the patient was sitting in bed in no acute distress. She states that she has been going to PT since her back surgery in October, no complications. Confirms that she was experiencing significant FOSTER while at PT earlier today. Confirms that she has always experienced FOSTER with her previous CABG and heart caths. Denies symptoms at rest. No recent fever, chills, chest pain, cough, hemoptysis, abd pain, nausea, vomiting, diarrhea, dysuria, hematuria, melena, and recent trauma. Has had some LE swelling recently which she attributes to increased sodium intake. She is a full code and her brother is her POA. Admission Exam Per Admitting Provider General: In no acute distress, stated age, well-nourished, good hygiene HEENT: Normocephalic, atraumatic, no scleral icterus, pupils around round, symmetrical, and reactive to light, moist mucus membranes, trachea midline, no thyromegaly Chest/Pulm: No respiratory distress, symmetrical chest expansion, clear breath sounds throughout Cardiac: RRR, 3/6 systolic murmur noted Abdomen: Negative for ascites and bruising, normoactive bowel sounds, soft, non- tender to palpation throughout Musculoskeletal: Symmetrical and without signs of acute trauma, upper and lower extremities with full ROM, no atrophy, spasticity, or flaccidity Extremities: Radial, dorsalis pedis, and posterior tibial pulses are intact and symmetrical, no edema noted in the BL LE's Skin: Warm, dry, no rashes , lesions, or scars noted Neuro: Alert and oriented to person, place, month, year, and president, no focal defects, no tremors noted Psych: No acute distress, calm and cooperative during the exam Principal Dx & Hospital Course #1 = Principal Diagnosis (1) FOSTER (dyspnea on exertion): -Presented to the ED after experiencing significant FOSTER and hypoxia into the 80's with exertion at PT 03/05/24 -Denies symptoms at rest -Symptoms are similar to her previous need for CABG and KATY placement -High sen trop WNL, no acute ST segment or T-wave changes on ECG -BNP mildly elevated at 341 but patient is without volume overload on exam or CXR -D-dimer is negative, BL venous dopplers to access for possible DVT were negative -Cardiology consulted. Did not feel that this was angina. Although CXR negative, symptoms could be due to pulmonary edema. -1 dose of Lasix given. Patient eager to be discharged and left immediately after Lasix was given. -She will follow-up with cardiology outpatient. (2) CAD, multiple vessel: -Continue plavix and statin (3) Postlaminectomy syndrome of lumbosacral region: -Continue home pain regimen (4) Pacemaker: Pacemaker interrogated and Helms rep stated pacemaker has 3 months of battery life but is working properly. (5) Prediabetes: Continue home regimen on discharge (6) Hypothyroidism: -Continue levothyroxine Plan Plan to follow-up with cardiology outpatient CODE STATUS: Full code Discharge Exam General: No acute distress, nondiaphoretic, well-developed, well-nourished. Skin: The skin was without rashes, erythema, edema, or bruising. Cardiac: Regular rate and rhythm. 3/6 systolic murmur noted. Pulm: Clear to auscultation bilaterally without wheezes, rales or rhonchi. No retractions or accessory muscle use. Abdominal: Positive bowel sounds x 4. Soft, nontender, without masses or organomegaly. No guarding or rebound tenderness. Neuro: A&O x3. No focal neurological deficits. Updated Medication List Medication Instructions Recorded Confirmed Type dorzolamide-timolol (PF) 2 %-0.5 % 1 drp OPB BID 02/27/22 03/05/24 History eye drops in a dropperette estradiol acetate 0.05 mg/24 hr 0.05 mg vaginal Q90D 02/27/22 03/05/24 History vaginal ring (Femring) clopidogrel 75 mg tablet (Plavix) 75 mg PO DAILY #90 tabs 06/20/23 03/05/24 Rx latanoprost 0.005 % eye drops 1 drp OPB PM 08/01/23 03/05/24 History (Xalatan) sertraline 25 mg tablet (Zoloft) 25 mg PO DAILY #90 tabs 12/10/23 03/05/24 Rx ibuprofen 200 mg tablet (Advil) 200 mg PO Q6H PRN Back Pain 03/05/24 03/05/24 History levothyroxine 100 mcg tablet 100 mcg PO DAILYBB 03/05/24 03/05/24 History (Synthroid) metformin 500 mg tablet,extended 500 mg PO HS 03/05/24 03/05/24 History release 24 hr tizanidine 4 mg tablet 4 mg PO Q4H PRN MUSCLE SPASMS 03/05/24 03/05/24 History Hospital Stay Data Consultations 03/05/24 18:35 ED Decision to Admit Stat 03/05/24 19:22 Consult Cardiology Routine Diagnostic Imagining Performed 03/05/24 19:24 US venous doppler LE Routine FINDINGS: There is no sonographic evidence of deep venous thrombosis identified in the right or left lower extremity. The common femoral, superficial femoral, and popliteal veins are patent and normally compressible bilaterally. The greater saphenous vein and the profunda femoris vein at the junction with the common femoral vein are clear in both legs. The visualized calf veins are patent bilaterally. IMPRESSION: There is no sonographic evidence of deep venous thrombosis identified in the right or left lower extremity. Pending Results Patient Have Any Pending Studies at Discharge: No Discharge Instructions Given to Patient (Per Discharging Provider) Ms. Sarmiento, Richi were admitted to the hospital due to dyspnea on exertion and intermittent hypoxia. Your troponin was normal, EKG was normal, and D-dimer was negative. Your BNP was mildly elevated, however you did not appear volume overloaded on exam or on your chest x-ray. You were seen by cardiology while hospitalized. The oil well directional surveyor does not think this is angina. The dyspnea on exertion and hypoxic episodes may have been due to pulmonary edema, however it is not completely clear as to what the cause was. You were given 1 dose of Lasix (diuretic) to remove any excess fluid. Upon discharge from the hospital: * Follow-up with cardiology outpatient. Their office will call you with an appointment date and time. * Continue your home medications as prescribed. Please return to the hospital if you experience any of the following: Shortness of breath, chest pain, confusion, fainting, fast or irregular heartbeat, coughing up blood, unusual pain in your chest/arm/shoulder/neck/upper back, unusual sweating, or dizziness. It was a pleasure taking care of you while you were in the hospital, Paty Goldberg PA-C Total Time Total Time Spent Total Time Spent (In Minutes): Greater than 30 minutes spent completing this discharge process including direct patient care, medication reconciliation, documentation, review of labs and images, and coordination of care. Coding Level of Care Code 73374 INP/OBS DISCH >30 MIN Diagnoses FOSTER (dyspnea on exertion) R06.09 CAD, multiple vessel I25.10 Postlaminectomy syndrome of lumbosacral region M96.1 Pacemaker Z95.0 Prediabetes R73.03 Hypothyroidism, unspecified type E03.9 Hypothyroidism type: unspecified
--- NOTE | 2024-03-08 10:11 | Electrocardiogram Report ---
Test Reason : Blood Pressure : / mmHG Vent. Rate : 072 BPM Atrial Rate : 072 BPM P-R Int : 210 ms QRS Dur : 084 ms QT Int : 394 ms P-R-T Axes : 000 -12 101 degrees QTc Int : 431 ms Atrial-paced rhythm with prolonged AV conduction with Premature atrial complexes Voltage criteria for left ventricular hypertrophy T wave abnormality, consider lateral ischemia Abnormal ECG When compared with ECG of 05-MAR-2024 17:08, Electronic atrial pacemaker has replaced Sinus rhythm Confirmed by Judd Billings ([id number]) on 03/08/2024 10:10:56 AM Referred By: Wilber Pope Confirmed By:Judd Billings
--- NOTE | 2024-03-21 10:11 | Coding Query ---
A supporting diagnosis is required for the test/procedure performed on this patient in order for us to be reimbursed by the patient's insurance. Please provide a supporting diagnosis for the following test/procedure listed below next to the test name along with your signature. *If there is no additional diagnosis for this patient that would support the following test/procedure please document that below next to the test/procedure. Test(s)/Procedure(s) that require a supporting diagnosis: * 98144 VENOUS DOPPLER BILAT LE DIAGNOSIS: Dyspnea on exertion, lower extremity swelling DATE OF SERVICE: 03/05/24 Provider Signature: Mp Rico PA-C Date: ___ 03/21/24____ Thank you Nasim Mckay [facility] Once completed, please kindly fax back to [phone] For questions please call [phone] B[facility]ARD
== END 2024-03-06 18:03 | disposition home or self-care (01) ==
LOC: 2W 16:39 → ED 16:39 → SUATTDRO 19:09 → 2W 20:43